=== PATIENT | male | born 2000 | race Hispanic/Latino ===

== ENCOUNTER 2023-01-24 11:20 | Emergency (ER) | payer SELFPAY ==
--- NOTE | ~2023-01-24 | CT_ITS ---
EXAMINATION: CT brain wo con DATE: 01/24/2023 11:53 INDICATION: Driving erratically. Possible CVA. TECHNIQUE: Computed tomography (CT) of the head was performed without intravenous contrast. The dose- length product was 983.67 mGy-cm. COMPARISON: None FINDINGS: Study limited by motion artifact. No acute intracranial hemorrhage, infarction, mass or mas s effect. No ventriculomegaly or midline shift. Basilar cisterns are patent. Normal guardado-white differ entiation. Paranasal sinuses are unremarkable. Mastoids are pneumatized. IMPRESSION: 1. No acute intracranial abnormality. Limited examination due to motion. Reviewed, dictated and finalized at location B.
--- NOTE | ~2023-01-24 | XR_ITS ---
Portable chest x-ray Comparison: None Clinical History: Tachycardia Findings: Lungs are clear, without focal consolidation or pleural effusion. Cardiomediastinal silho uette is unremarkable. Bones and soft tissues are unremarkable. Impression: Normal chest. Reviewed, dictated and finalized at location . Impression: Normal chest.
--- NOTE | 2023-01-24 11:24 | ECG_ITS ---
Measurements Intervals [place] Rate: 144 P: 64 [place]: 127 QRS: 76 QRSD: 101 T: 53 QT: 297 QTc: 460 Interpretive Statements SINUS TACHYCARDIA NONSPECIFIC ST & T-WAVE ABNORMALITY ABNORMAL RHYTHM ECG NO PREVIOUS ECG AVAILABLE FOR COMPARISON Electronically Signed On 01-24-2023 20:23:00 CDT by Twyla Bush M.D.
[2023-01-24 11:35] VITALS: BP 131/83; PULSE 150; RESP 18; TEMP 36.8; O2SAT 100
[2023-01-24 11:44] LABS: Basophils Percent Auto 0.3 % (0.2-1.2); Eosinophils Absolute Auto 0.4 K/mm3 (0-0.3); Eosinophils Percent Auto 2.7 % (0-4.4); Hematocrit 48.6 % (42.0-52.0); Hemoglobin 16.5 g/dL (14.0-18.0); Immature Granulocyte Absolute 0.09 K/mm3 (0.00-0.031); Immature Granulocyte Percent A 0.6 % (0-0.5); Lymphocytes Absolute Auto 6.31 K/mm3 (0.9-3.2); Mean Corpuscular Hemoglobin 29.6 pg (26-34); Mean Corpuscular Volume 87.3 fl (80-100); Mean Platelet Volume 9.4 fl (7.4-10.4); Monocytes Absolute Auto 0.9 K/mm3 (0.1-0.6); Monocytes Percent Auto 5.9 % (2.6-8.5); Neutrophils Absolute Auto 7.3 K/mm3 (1.3-6.7); Neutrophils Percent Auto 48.5 % (45.5-73.1); Platelet Count Result 427 k/mm3 (150-375); Red Blood Count 5.57 M/mm3 (4.6-6.20); Red Cell Distribution Width 13.2 % (11.5-14.5)
[2023-01-24 11:54] LABS: Prothrombin Time 13.9 Seconds (11.1-14.7)
[2023-01-24 11:55] LABS: Partial Thromboplastin Time 30.1 SECONDS (22.3-36.8)
[2023-01-24 11:57] LABS: Albumin Level 5.1 g/dL (3.5-5.1); Alkaline Phosphatase 84 U/L (38-126); Anion Gap 24 mmol/L (8-16); Aspartate Amino Transferase 52 U/L (17-59); Bilirubin,Total 0.5 mg/dL (0.2-1.3); Blood Urea Nitrogen 9 mg/dL (9-20); Calcium 9.6 mg/dL (8.4-10.2); Carbon Dioxide 11 mmol/L (22-30); Chloride 104 mmol/L (98-107); Estimated CRCL calculation 177 ml/min; Estimated Glomerular Filt Rate > 60; Glucose 189 mg/dL (65-110); Potassium 4.1 mmol/L (3.4-5.0); Sodium 139 mmol/L (137-145)
[2023-01-24 12:01] LABS: Alanine Aminotransferase 95 U/L (6-50)
[2023-01-24 12:05] LABS: Troponin I < 0.012 ng/mL (0.000-0.034)
--- NOTE | 2023-01-24 12:10 | ED.AMS ---
HPI - Altered Mental Status General Chief Complaint: Altered Mental Status Stated Complaint: Code CVA Time Seen by Provider: 01/24/23 11:54 History of Present Illness HPI narrative: 22-year-old male presented the emergency department for evaluation after having an unresponsive episode. 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 Patient states that he did not sleep well last night and he had just started his shift this morning and only made it about a mile or so and started feeling dizzy and lightheaded. Patient tried to pull the truck over. Witnesses found the patient driving erratically and when they went to check on him he was found limp in the truck. Upon arrival to the emergency department patient's heart rate was in the 150s. Patient is alert oriented and denies any complaints at this time. Patient is requesting to be discharged at this time. Patient denies any prior seizure history. Patient states he does not take stimulants or drink caffeine. Related Data Allergies Allergy/AdvReac Type Severity Reaction Status Date / Time No Known Allergies Allergy Verified 01/24/23 14:25 Review of Systems Review of Systems: All systems reviewed & are unremarkable except as noted in HPI and below Exam Narrative: APPEARANCE: Well appearing, no pain, no distress, well-nourished. HEAD: normocephalic, atraumatic. EYES: PERRLA/EOMI, conjunctivae clear. NOSE: Normal no drainage NECK: Supple. No adenopathy, no masses. RESPIRATORY: Airway patent, respirations nonlabored. Clear to auscultation bilaterally, no rales, rhonchi, wheezing. CARDIOVASCULAR: Regular rate and rhythm without murmurs rubs or gallops. ABDOMINAL: Soft, nontender, nondistended, normal bowel sounds MUSCULOSKELETAL: Moves all extremities. Strength/ROM intact, No edema, No calf tenderness. NEURO: Alert. Cranial nerves II through XII intact. Grossly intact SKIN: Warm, dry. Normal Color Course Course Emergency Course: 22-year-old male presented to the emergency department for evaluation after having an unresponsive episode. Patient denies any complaints at this time and was requesting to be discharged. Patient does have a leukocytosis of 15. No significant electrolyte abnormalities. Troponin was negative. Head CT was negative. Patient declined any additional work-up, patient declined IV fluids. Patient is requesting discharge to home. Patient is alert appropriate and is capable of making his own decisions. Vital Signs Vital signs: Vital Signs Temperature 98.2 F 01/24/23 11:35 Pulse Rate 150 H 01/24/23 11:35 Respiratory Rate 18 01/24/23 11:35 Blood Pressure 131/83 01/24/23 11:35 Pulse Oximetry 100 01/24/23 11:35 Oxygen Delivery Room Air 01/24/23 11:35 Temperature 98.2 F 01/24/23 11:35 Pulse Rate 106 H 01/24/23 14:55 Respiratory Rate 18 01/24/23 14:55 Blood Pressure 112/60 01/24/23 14:55 Pulse Oximetry 98 01/24/23 14:55 Oxygen Delivery Room Air 01/24/23 11:35 MDM - Altered Mental Status Differential Diagnosis Differential diagnosis: Likely alcoholic intoxication, altered mental status, delirium, hypoglycemia, hyponatremia, subarachnoid hemorrhage and other Lab Data Attestation: I reviewed the patient's lab results. 01/24/23 11:35 01/24/23 11:35 Labs: Lab Results 01/24/23 01/24/23 01/24/23 Range/Units 11:35 13:16 13:52 WBC 15.0 H (4.5-10.0) K/mm3 RBC 5.57 (4.6-6.20) M/mm3 Hgb 16.5 (14.0-18.0) g/dL Hct 48.6 (42.0-52.0) % MCV 87.3 (80-100) fl MCH 29.6 (26-34) pg MCHC 34.0 (32-36) g/dl RDW 13.2 (11.5-14.5) % Plt Count 427 H (150-375) k/mm3 MPV 9.4 (7.4-10.4) fl Immature Gran % (Auto) 0.6 H (0-0.5) % Neut % (Auto) 48.5 (45.5-73.1) % Lymph % (Auto) 42.0 (18.3-44.2) % [place] % (Auto) 5.9 (2.6-8.5) % Eos % (Auto) 2.7 (0-4.4) % Baso % (Auto) 0.3 (0.2-1.2) % Lymph # (Auto) 6.31 H (0.9-3.
--- NOTE | 2023-01-24 12:19 | PC.NURSE ---
Pt refusing IVF. Pt states I have my rights and I have a flight to catch back home. ERP aware.
--- NOTE | 2023-01-24 12:23 | PC.NURSE ---
Patient refusing COVID test. EDP aware.
[2023-01-24 13:42] LABS: Amphetamine Screen Urine Negative (Negative); Barbiturate Screen Urine Negative (Negative); Benzodiazepines Screen Urine Negative (Negative); Cannabinoid Screen Urine Negative (Negative); Cocaine Screen Urine Negative (Negative); Methadone Screen Urine Negative (Negative); Opiate Screen Urine Negative (Negative); Phencyclidine Screen Urine Negative (Negative)
[2023-01-24 13:47] LABS: Appearance Urine Clear (Clear); Bacteria Urine None Seen /hpf; Bilirubin Urine Negative (Negative); Blood Urine 1+ (Negative); Color Urine Yellow (Yellow); Glucose Urine UA Negative (Negative); Granular Casts Urine Present /lpf; Hyaline Casts Urine Present /lpf; Ketones Urine Negative (Negative); Leukocyte Esterase Ur Negative LEU/UL (Negative); Nitrate Urine Negative (Negative); Protein Urine 3+ mg/dL (Negative); RBC Urine 0-2 /hpf (0-2); Specific Grav Ur 1.016 (1.001-1.035); Squamous Epithelial Cell Urine None seen /hpf (Few); Urobilinogen Urine 0.2 mg/dL (<2.0); WBC Urine 0-5 /hpf; pH Urine 5.5 (5.0-9.0)
[2023-01-24 13:54] LABS: Add Urine Microscopic? YES
[2023-01-24 14:01] VITALS: BP 124/82; PULSE 108; RESP 16; O2SAT 99
[2023-01-24 14:18] LABS: Ethanol < 10 mg/dL (<10)
[2023-01-24] MEDS: Please add drug allergy info to patient profile. 1 EACH XX (14:26)
[2023-01-24 14:35] LABS: Influenza A QL RT-PCR Negative (Negative); Influenza B QL RT-PCR Negative (Negative); RSV RNA, RT-PCR Negative (Negative); SARS-CoV-2 RNA PCR Negative (Negative)
[2023-01-24 14:55] VITALS: BP 112/60; PULSE 106; RESP 18; O2SAT 98
== END 2023-01-24 14:57 | disposition home or self-care (01) ==
PROVIDERS: Emergency Medicine; Emergency Provider Emergency Medicine
DX: R41.82 Altered mental status, unspecified (principal); Z11.52 Encounter for screening for COVID-19; R00.0 Tachycardia, unspecified; R94.31 Abnormal electrocardiogram [ECG] [EKG]
CPT/HCPCS: 36415; 70450; 71045; 80053; 80307; 81001; 84484; 85025; 85610; 85730; 87637; 93005; 99284